=== PATIENT | male | born 1975 ===

== ENCOUNTER 2019-02-17 15:48 | Inpatient (IN) | payer BC ==
[2019-02-17] MEDS ORDERED: Lorazepam 2 MG/ML VIAL ONE (16:20)
[2019-02-17 16:37] LABS: #Basophils 0.1 thou/uL (0.0-0.2); #Eosinphils 0.2 thou/uL (0.0-0.7); #Lymphocytes 2.2 thou/uL (1.20-3.40); #Monocytes 0.7 thou/uL (0.11-0.59); %Basophils 0.6 % (0.0-1.0); %Eosinophils 1.6 % (0.0-10.0); %Lymphocytes 21.7 % (21.0-51.0); %Monocytes 6.7 % (0.0-10.0); %Neutrophils 69.5 % (42.0-75.0); Hemoglobin 15.4 g/dL (14.0-18.0); Mean Corpuscular Hemoglobin 30.4 pg (27.0-31.0); Mean Corpuscular Volume 86.8 fL (78.0-98.0); Mean Platelet Volume 8.2 fL (7.4-10.4); Platelet Count 249 thou/uL (130-400); RBC Distribution Width 11.8 % (11.5-14.5); Red Blood Cell (RBC) Count 5.08 mill/uL (4.70-6.10)
[2019-02-17 16:45] LABS: Bilirubin Negative (Negative); Blood, Urine Trace (Negative); Clarity CLEAR (Clear); Glucose, Urine (Dipstick) >=1000 mg/dL (Negative); Leukocyte Negative (Negative); Nitrite Negative (Negative); Protein, Urine (Dipstick) 100 mg/dL (Neg-Trace); Specific Gravity, Urine 1.043 (1.002-1.036); Urobilinogen 0.2 mg/dL (0.2-1.0)
[2019-02-17 16:48] LABS: Bacteria/HPF None Seen HPF (None Seen); Hyaline Casts/LPF 0-3 HYALINE CAST LPF (0-3 Hyaline); Pathc Cast-AUWi Flag 0.81 (0-2.49); Squamous Epithelial 0-3 HPF (0-3); WBC/HPF 0-3 HPF (0-3)
[2019-02-17 16:56] LABS: Amphetamine Not Detected (NotDetected); Barbiturates Screen Not Detected (NotDetected); Benzodiazepine Screen Not Detected (NotDetected); Cocaine Metabolite Screen Not Detected (NotDetected); Medtox Control Line Valid? VALID (VALID); Medtox Reader # READER 4; Methadone Not Detected (NotDetected); Methamphetamine Not Detected (NotDetected); Opiate Screen Not Detected (NotDetected); Oxycodone Screen Not Detected (NotDetected); Phencyclidine (PCP) Not Detected (NotDetected); THC/Cannabinoid Screen Not Detected (NotDetected); Tricyclic Screen Not Detected (NotDetected)
[2019-02-17 17:06] LABS: Acetaminophen Less than 6.0 mcg/mL (10.0-30.0); Alcohol Less than 10 mg/dL (Less than 10)
[2019-02-17 18:09] LABS: Salicylate Less than 8.0 mg/dL (15.0-30.0)
[2019-02-17 18:41] LABS: Chloride 101 mmol/L (98-107); Potassium 4.3 mmol/L (3.5-5.1); Sodium 132 mmol/L (136-145)
[2019-02-17 18:42] LABS: Anion Gap 20 mmol/L (10-20); BUN (Urea Nitrogen) 13 mg/dL (8.9-20.6); Calc. Creatinine Clearance 0 mL/min (70-130); Carbon Dioxide 16 mmol/L (22-29); Estimated GFR-MDRD Greater than 90; Glucose 295 mg/dL (70-105)
[2019-02-17 18:43] LABS: ALT (SGPT) 14 U/L (8-55); AST (SGOT) 20 U/L (5-34); Albumin 3.7 g/dL (3.5-5.0); Alkaline Phosphatase 68 U/L (40-150); Bilirubin, Total 0.2 mg/dL (0.2-1.2); Calcium 8.4 mg/dL (7.8-10.44); Globulin 2.5 g/dL (2.4-3.5); Lipase 43 U/L (8-78); Protein, Total 6.2 g/dL (6.0-8.3)
[2019-02-17] MEDS ORDERED: Ondansetron ODT 4 MG TAB PO PRN (20:10)
[2019-02-17] MEDS ORDERED: Ondansetron PF 4 MG/2 ML Vial IVP PRN (20:10)
[2019-02-17] MEDS ORDERED: Acetaminophen 325 MG TAB PO PRN (20:10)
[2019-02-17] MEDS ORDERED: Morphine 2 MG/ML SYRINGE SLOW IVP PRN (20:13)
[2019-02-17] MEDS ORDERED: Morphine 4 MG/ML VIAL SLOW IVP PRN (20:13)
[2019-02-17] MEDS ORDERED: Sodium Chloride 0.9% 1,000 ML IV SCH (20:15)
[2019-02-17] MEDS ORDERED: HYDROcodone/Acetaminophen 5/325 mg Tablet PO PRN (20:16)
[2019-02-17] MEDS ORDERED: Dextrose 50% Abboject 50 ML SYRINGE SLOW IVP PRN (20:17)
[2019-02-17] MEDS ORDERED: HumaLOG 300 UNITS/3 ML VIAL SC PRN ×2 (20:17)
[2019-02-17] MEDS ORDERED: Dextrose 5% in Water 1,000 ML IV PRN (20:17)
[2019-02-17] MEDS ORDERED: hydrALAZINE 20 MG/ML VIAL SLOW IVP PRN (20:18)
--- NOTE | 2019-02-17 20:56 | HP ---
PRIMARY CARE PHYSICIAN: Dr. Montoya. CHIEF COMPLAINT: Abdominal pain. HISTORY OF PRESENT ILLNESS: This is a 43-year-old male with history of diabetes mellitus type 2, hypertension, dyslipidemia, off all medicines for 3-4 months, daily alcohol use, who presents to the emergency room with a complaint of abdominal pain. The patient reports the onset of 3 days ago, located in the left upper quadrant with associated fatigue and weakness. States that he has primarily been in bed, able to drink fluids, but rates the pain in severity at its worst as 8/10. He describes it as an aching quality that radiates to his back. This afternoon, the pain is improved and rates it 1/10 or 2/10. He denies any precipitating factors or relieving factors and has not taken pain medicine for this. The patient was seen in the office of his primary care provider by another physician yesterday who prescribed Reglan and set up a CT scan, which was performed today at [facility]. He was called with results and told he has a new diagnosis of pancreatitis and go to an emergency room. The patient denies any prior history of this diagnosis. He does report a prior history of similar pain 3-4 months ago and was not seen for it. He attributed it to the medications that he was on for the above medical problems and discontinued all of them. He reports that the symptoms lasted 4 days and then resolved. The patient notes the weakness, fatigue, polyuria, polydipsia, and a fast heart rate at home. He denies any nausea, vomiting, fevers, or chills. In the in the emergency room, the patient received 2 L of IV fluid, 1 mg of Ativan, and hospitalist called for admission. ALLERGIES: TO MEDICINE ARE AMOXICILLIN WHICH CAUSES DIARRHEA. CURRENT MEDICATIONS: Reglan, he took 5 mg two tablets yesterday. PAST MEDICAL HISTORY: 1. Diabetes mellitus type 2. 2. Hypertension. 3. Dyslipidemia. 4. Obstructive sleep apnea status post surgery. No CPAP required. PAST SURGICAL HISTORY: 1. Tonsillectomy. 2. Uvula removal. 3. Adenoids. SOCIAL HISTORY: The patient consumes 6 beers per day, on the weekends, consume more and 4 days ago, had at least 20 beers. He is , denies any tobacco. His is his surrogate decision maker. FAMILY HISTORY: Significant for diabetes, stroke and coronary disease. REVIEW OF SYSTEMS: Positive for Weakness, fatigue, polyuria, polydipsia, and fast heart rate. The patient denies any shakiness or tremors and last alcohol use was 4 days ago. Negative for nausea, vomiting, fevers. All remaining review of systems were reviewed and negative. PHYSICAL EXAMINATION: VITAL SIGNS: His pulse is 119, blood pressure 152/90, respirations 20, temperature 98, saturations 99% on room air. GENERAL: Awake, alert, responsive, in no apparent distress. Able to speak in full sentences. HEENT: His pupils are equal and round. No scleral icterus. Oral mucosa is pink and moist. NECK: Supple and nontender. LYMPHATICS: No palpable cervical or supraclavicular lymphadenopathy. LUNGS: Clear to auscultation bilateral with good air movement. HEART: Normal S1, S2. Regular rate and rhythm. No audible murmurs. ABDOMEN: Soft with present bowel sounds, nontender, nondistended. EXTREMITIES: No pitting edema, clubbing or cyanosis. SKIN: No visible rashes. NEURO: No focal deficits. VASCULAR: 2+ dorsalis pedis pulses. PSYCH: The patient is euthymic. DIAGNOSTIC STUDIES: EKG, personally reviewed, sinus rhythm, tachycardia to 128. No ST changes. LABORATORY DATA: Labs reviewed. CBC; 10, 15.4, 44.1, 249. Chemistry; 132, which corrects to 136, 4.3, 101, 16, 13, 0.78, 295. Lipase is 43. Urinalysis; specific gravity 1.043, present protein, glucose, ketones, trace blood with 4 to 6 red blood cells. Urine drug screen negative. Alcohol negative. Acetaminophen and salicylates negative. IMPRESSION: 1. Pancreatitis based on history and CT with alcohol being the most likely precipitant of this. The patient does have a history of dyslipidemia that is currently untreated. 2. Tachycardia, likely secondary to uncontrolled diabetes and polyuria, as well as pancreatitis. 3. Metabolic acidosis, likely secondary to above. 4. Alcohol abuse. 5. Type 2 diabetes, uncontrolled. 6. Hypertension, uncontrolled. 7. Dyslipidemia, uncharacterized as to the extent. 8. Pseudohyponatremia - corrects to normal. PLAN: 1. Admission to the hospital. 2. Telemetry monitoring, bolus another 1 L of normal saline and run twice maintenance IV fluids. 3. Since pain is better, we will start on a clear liquid carbohydrate consistent diet for now and advance as tolerated. 4. Check a lipid panel, we will obtain an ultrasound of his gallbladder to evaluate for a gallbladder etiology given the improvement in symptoms. 5. Manage significantly elevated blood pressures with hydralazine. 6. Manage pain as well as any nausea or vomiting. 7. Insulin sliding scale with meals and at bedtime. 8. The patient's to bring in the medication list of what he used to be on to determine what medications will be appropriate either for the inpatient or after discharge. 9. Given the normal lipase today, no indication to repeat it. 10. Monitor for signs or symptoms of alcohol withdrawal. 11. Anticipated length of stay is at least 2 midnights for management of symptoms and further evaluation. 12. Deep venous thrombosis prophylaxis, pneumatic compression devices. 13. Gastrointestinal prophylaxis, not indicated. 14. Code status is full and surrogate decision maker is the patient's . 15. Reviewed the plan of care with the patient and his . No questions or further needs at the end of evaluation. 16. The patient is at high risk given age, comorbidities and current presentation. Job ID: [id number] [facility]
[2019-02-17] MEDS: Sodium Chloride 0.9% 1,000 ML IV SCH (21:04)
[2019-02-17 21:28] VITALS: BMI 34.9
[2019-02-17] MEDS ORDERED: Lorazepam 2 MG/ML VIAL SLOW IVP PRN (21:53)
[2019-02-18] MEDS: Sodium Chloride 0.9% 1,000 ML IV SCH ×5 (02:21→17:37)
[2019-02-18 05:50] LABS: #Eosinphils 0.3 thou/uL (0.0-0.7); #Lymphocytes 1.6 thou/uL (1.20-3.40); #Monocytes 0.4 thou/uL (0.11-0.59); #Neutrophils 5.1 thou/uL (1.40-6.50); %Basophils 0.1 % (0.0-1.0); %Eosinophils 3.6 % (0.0-10.0); %Lymphocytes 21.5 % (21.0-51.0); %Monocytes 5.6 % (0.0-10.0); %Neutrophils 69.2 % (42.0-75.0); Mean Corpuscular HGB CONC 33.7 g/dL (32.0-36.0); Mean Corpuscular Hemoglobin 29.7 pg (27.0-31.0); Mean Corpuscular Volume 87.9 fL (78.0-98.0); Mean Platelet Volume 7.8 fL (7.4-10.4); Platelet Count 204 thou/uL (130-400); RBC Distribution Width 11.7 % (11.5-14.5); Red Blood Cell (RBC) Count 4.39 mill/uL (4.70-6.10); White Blood Cell (WBC) Count 7.3 thou/uL (4.8-10.8)
[2019-02-18 06:10] LABS: Anion Gap 13 mmol/L (10-20); BUN (Urea Nitrogen) 7 mg/dL (8.9-20.6); Calc. Creatinine Clearance 219 mL/min (70-130); Calcium 8.3 mg/dL (7.8-10.44); Carbon Dioxide 18 mmol/L (22-29); Cardiac Risk 10.9 (Less than 4.5); Chloride 107 mmol/L (98-107); Cholesterol 316 mg/dl (< 200 Desired); Estimated GFR-MDRD Greater than 90; Glucose 181 mg/dL (70-105); HDL Cholesterol 29 mg/dL (>60 Neg Risk); Potassium 3.6 mmol/L (3.5-5.1); Sodium 134 mmol/L (136-145); Triglycerides 776 mg/dL (Less than 150)
--- NOTE | 2019-02-18 07:00 | ULT ---
GALLBLADDER ULTRASOUND: INDICATIONS: Pain. Pancreatitis. FINDINGS: There is increased echogenicity of the liver. There is no evidence of cholelithiasis or acute cholec ystitis. The common duct is normal in caliber. No evidence of ascites. The pancreas is incompletel y visualized on the basis of this exam, as portions are obscured by bowel content. As necessary, butcher creatitis may be further assessed with a dedicated CT exam with contrast. IMPRESSION: 1. Findings favor hepatic steatosis with relative sparing of the gallbladder fossa. 2. No acute gallbladder pathology. POS: MANFRED
--- NOTE | 2019-02-18 11:59 | PDOC.PN ---
- Subjective Encounter Start Date: 02/18/19 (f/u pancreatitis) Encounter Start Time: 11:57 Subjective: Pt denies any pain/n/v. Has voided twice today. Denies any new -: concerns. Tolerating liquids without difficulty. - Objective Resuscitation Status - Order Detail: 02/17/19 20:10 Resuscitation Status Routine Resuscitation Status: FULL: Full Resuscitation Vital Signs & Weight: Vital Signs (12 hours) Temp Pulse Resp BP BP Pulse Ox 02/18/19 07:45 165/84 H 95 02/18/19 07:42 97.8 F 105 H 20 167/86 H 95 02/18/19 04:16 98.1 F 104 H 18 168/90 H 95 02/18/19 04:10 168/90 H 02/18/19 00:05 159/87 H Weight Weight 216 lb 14.4 oz I&O: 02/17/19 02/18/19 02/19/19 06:59 06:59 06:59 Intake Total 3205 Output Total 750 Balance 2455 Result Diagrams: 02/18/19 05:38 02/18/19 05:38 Additional Labs: Accuchecks 02/18/19 02/18/19 10:37 05:20 POC Glucose 205 H 156 H EKG Reviewed by me: Yes (tele - sinus 110-120's) Phys Exam - Physical Examination Constitutional: NAD Respiratory: no wheezing, no rales, no rhonchi, clear to auscultation bilateral Cardiovascular: RRR, no significant murmur Gastrointestinal: soft, non-tender, no distention, positive bowel sounds Musculoskeletal: no edema Neurological: non-focal, moves all 4 limbs Psychiatric: normal affect Dx/Plan (1) Pancreatitis Code(s): K85.90 - ACUTE PANCREATITIS WITHOUT NECROSIS OR INFECTION, UNSP Status: Acute Qualifiers: Chronicity: acute Pancreatitis type: unspecified pancreatitis type (2) Diabetes mellitus Code(s): E11.9 - TYPE 2 DIABETES MELLITUS WITHOUT COMPLICATIONS Status: Chronic Qualifiers: Diabetes mellitus type: type 2 Diabetes mellitus jail insulin use: without emt intermediate use (3) Hypertension Code(s): I10 - ESSENTIAL (PRIMARY) HYPERTENSION Status: Chronic Qualifiers: Hypertension type: essential hypertension Qualified Code(s): I10 - Essential (primary) hypertension (4) Dyslipidemia Code(s): E78.5 - HYPERLIPIDEMIA, UNSPECIFIED Status: Acute (5) Alcohol abuse Code(s): F10.10 - ALCOHOL ABUSE, UNCOMPLICATED Status: Chronic - Plan * Pancreatitis - pain free * to bring home meds in - will review and determine which ones to restart * DM 2 =- uncontrolled. * HTN - uncontrolled * HLP - elevated triglycerides - doubt this level would cause pancreatitis * Supervisor Harvesting consult * monitor for alcohol withdrawal * tachycardia - check TSH * Hepatic steatosis - needs f/u with PCP Dr. Schreiber * * dvt prophy - ambulatory * gi prophy - not indicated * code status full * * reviewed plan of care with patient,no questions or further needs at end of eval
[2019-02-18] MEDS ORDERED: Amlodipine 5 MG TAB PO SCH (16:30)
--- NOTE | 2019-02-18 16:30 | PDOC.EVN ---
Event Note - Event Note Event Note: reviewed home meds: - statin - hold for now due to acute pancreatitis. Start gemfibrozil instead to address the elevated triglycerides - ARB - hold for now, and start amlodipine due to no potential effect on the kidneys. - metformin - start tomorrow at lower than normal dose. Will lower IVF rate and monitor UOP and advance diet to carb consistent/heart healthy. recheck labs in AM and if doing well, anticipate d/c to home.
[2019-02-18] MEDS: Gemfibrozil 600 MG TAB PO SCH (17:36)
[2019-02-19] MEDS: Sodium Chloride 0.9% 1,000 ML IV SCH (03:56)
[2019-02-19] MEDS ORDERED: metFORMIN 500 MG TAB PO SCH (08:00)
[2019-02-19 08:16] LABS: Anion Gap 14 mmol/L (10-20); BUN (Urea Nitrogen) 7 mg/dL (8.9-20.6); Calc. Creatinine Clearance 198 mL/min (70-130); Calcium 9.5 mg/dL (7.8-10.44); Carbon Dioxide 22 mmol/L (22-29); Chloride 101 mmol/L (98-107); Estimated GFR-MDRD Greater than 90; Glucose 183 mg/dL (70-105); Potassium 3.6 mmol/L (3.5-5.1); Sodium 133 mmol/L (136-145)
[2019-02-19 08:22] VITALS: BP 147/63; TEMP 98.2
[2019-02-19] MEDS ORDERED: Amlodipine 5 MG TAB PO SCH (09:00)
[2019-02-19] MEDS: Gemfibrozil 600 MG TAB PO SCH (09:26)
--- NOTE | 2019-02-19 15:09 | EKG ---
Test Reason : Blood Pressure : / mmHG Vent. Rate : 128 BPM Atrial Rate : 128 BPM P-R Int : 132 ms QRS Dur : 080 ms QT Int : 304 ms P-R-T Axes : 043 -05 -04 degrees QTc Int : 443 ms Sinus tachycardia Possible Left atrial enlargement Left ventricular hypertrophy Abnormal ECG Confirmed by LUCIAN LÓPEZ ([id number]), editorial project manager LEX GUSTAFSON ([id number]) on 02/19/2019 3:09:36 PM Referred By: Confirmed By:LUCIAN LÓPEZ
--- NOTE | 2019-02-20 11:55 | DIS ---
DATE OF ADMISSION: 02/17/2019 DATE OF DISCHARGE: 02/19/2019 MEDICATIONS: Reconciled at discharge. HOME MEDICATIONS: The patient had not been on any home medications for at least a few months and then was on them only for a few days. His home medications previously prescribed are as follows; 1. Atorvastatin. This is not restarted due to this admission for pancreatitis. 2. Losartan. This medication was on hold. Here, the patient was instead started on amlodipine, anticipate this can be started again in the outpatient setting. 3. Glipizide. This will be restarted at a lower dose. 4. Metformin. This will be restarted at a lower dose. NEW MEDICATIONS: 1. Amlodipine 5 mg daily. 2. Gemfibrozil 600 mg b.i.d. with food. 3. Glipizide 5 mg daily. 4. Metformin 500 mg daily. FINAL DIAGNOSES: 1. Acute pancreatitis. 2. Hypertension, uncontrolled. 3. Type 2 diabetes, uncontrolled. 4. Dyslipidemia including hypertriglyceridemia, uncontrolled. 5. Tachycardia, likely secondary to above medical problems. 6. Hepatic steatosis. SECONDARY DIAGNOSES: Alcohol abuse. HISTORY OF PRESENT ILLNESS: Mr. Avni Hills is a 43-year-old male with the above medical problems, who had been off all of his medicines for 3 or 4 months, presented to his primary care provider's office with a complaint of abdominal pain. He was sent for a CT scan the following day, called with results of pancreatitis and encouraged to present to the emergency room. The patient at onset of pain reported it was 8/10 in severity and had improved by the time he got to the emergency room to 1 or 2/10. He was admitted for the diagnosis of pancreatitis in the context of uncontrolled hypertension, diabetes. HOSPITAL COURSE: The patient has been managed on IV fluid hydration and has tolerated this well. 1. Pancreatitis. The patient's lipase level was normal on admission. In discussion with him, he had a significant increase in alcohol use the day prior to the onset of symptoms. This is considered the source of pancreatitis. He does have elevated triglycerides in the 700 range and was started on gemfibrozil. He had a CT scan only notable for hepatic steatosis, no gallstones and his LFTs were normal. 2. Diabetes. The patient's blood sugars here have been in the 140s to the 180s systolic. He was started on amlodipine yesterday and his blood pressure this morning is 147/63. He will be discharged on this medication. I anticipate that his losartan can be resumed in the outpatient setting. This was not initiated here, instead amlodipine so that the patient can be seen by his primary care provider with followup labs and to determine when to resume this medication. 3. Diabetes. The patient was managed with sliding scale insulin here and his blood sugars have been in the 180s to low 200s. I resumed his metformin at a low dose today, which I anticipate can be increased in the outpatient setting. In addition, glipizide will be resumed at a lower dose tomorrow. 4. Dyslipidemia. His atorvastatin was not initiated due to the rare risk of pancreatitis associated with it. He had not been on this medication, it is not the source of pancreatitis. I anticipate that he can be started on the outpatient setting in a few weeks to a month or so. In the meantime, he is started on gemfibrozil for the high triglycerides. 5. We discussed dietary consideration for management of all 3 medical conditions of diabetes, hypertension, and dyslipidemia. We discussed primarily filling his plate with vegetables, followed by meat and a very small proportion of his intake to be carbohydrates. In addition, we discussed complete cessation of alcohol. The patient desires to continue this and will follow up with his doctor in the outpatient setting. 6. Tachycardia. The patient has remained with a heart rate of about 100. He had no arrhythmias during this admission and was monitored on telemetry. He may benefit from a Cardiology workup, and will benefit from optimization of the high blood pressure, diabetes, and dyslipidemia. Beta-jose was not initiated during this admission, and the patient only received telemetry. The patient overall feeling well, ambulating well and does meet criteria for discharge to home with close followup as noted above. PHYSICAL EXAMINATION: VITAL SIGNS: On day of discharge, his pulse was 103, blood pressure 147/63. GENERAL: Awake, alert, and responsive, in no apparent distress. Able to speak in full sentences. LUNGS: Clear to auscultation bilateral. HEART: Normal S1 and S2. Regular rate and rhythm. No audible murmurs. ABDOMEN: Soft with present bowel sounds. Nontender. Nondistended. EXTREMITIES: No edema. [place] FINDINGS AND TEST RESULTS: Renal panel today 133, 3.6, 101, 22, 7, 0.66, 183 with a calcium of 9.5. Triglycerides 776, cholesterol 316, HDL 29. T bilirubin 0.2, AST 20, ALT 14, alkaline phosphatase 68, total protein 6.2, and albumin 3.7. Lipase was 43. CBC; 7.3, 13, 38.6, 204 with a hemoglobin of 15.4 on admission. Urinalysis present glucose, ketones. Specific gravity 1.043 and present protein. Urine drug screen is negative. Alcohol negative. Abdominal ultrasound performed on February 17. Findings favor hepatic steatosis with relative sparing of the gallbladder fossa. No acute gallbladder pathology. DIET: Heart healthy, carbohydrate consistent. ACTIVITY: As tolerated, recommend the patient not return to work until February 28 to allow time to both recover, see how he does on medication and follow up closely with his primary care provider. A note is provided for this. DISCHARGE DISPOSITION: Home CODE STATUS: Full Followup is with Dr. Montoya as scheduled for February 22. Reviewed with the patient and his this hospitalization, medication changes and reasoning behind, the need for followup and seek care precautions. He demonstrates understanding. Total time coordinating discharge is 40 minutes. Job ID: [id number] [facility]
== END 2019-02-19 13:04 | disposition home or self-care (01) | DRG 439 ==
LOC: ERS 15:48 → UNDOADMIN 19:49 → 2NO 19:49 → UNDODISIN 20:23 → 2NO 20:41
PROVIDERS: ADMIT Family Medicine; ATTEND Family Medicine
DX: K85.20 Alcohol induced acute pancreatitis without necrosis or infection (principal); E87.2 Acidosis; E11.9 Type 2 diabetes mellitus without complications; I10 Essential (primary) hypertension; E78.5 Hyperlipidemia, unspecified; G47.33 Obstructive sleep apnea (adult) (pediatric); E78.1 Pure hyperglyceridemia; F10.10 Alcohol abuse, uncomplicated; R00.0 Tachycardia, unspecified; K76.0 Fatty (change of) liver, not elsewhere classified; Z88.8 Allergy status to other drugs, medicaments and biological substances; Z88.1 Allergy status to other antibiotic agents; Z88.0 Allergy status to penicillin
CPT/HCPCS: 36415; 36416; 76705; 80048; 80053; 80061; 80306; 80307; 81003; 81015; 83690; 85025; 93005; 96361; 96374; J0360; J2060

== ENCOUNTER 2023-08-03 22:44 | Emergency (ER) | payer BC, SELFPAY ==
[2023-08-04] MEDS ORDERED: predniSONE 20 MG TAB ONE (00:49)
[2023-08-04] MEDS ORDERED: Famotidine 20 MG TAB ONE (00:49)
== END 2023-08-04 01:01 | disposition home or self-care (01) ==
LOC: ERS 22:44
DX: S80.862A Insect bite (nonvenomous), left lower leg, initial encounter (principal); S80.861A Insect bite (nonvenomous), right lower leg, initial encounter; I10 Essential (primary) hypertension; E78.5 Hyperlipidemia, unspecified; W57.XXXA Bitten or stung by nonvenomous insect and other nonvenomous arthropods, initial encounter; Z79.84 Long term (current) use of oral hypoglycemic drugs; Z79.899 Other long term (current) drug therapy
CPT/HCPCS: 99282; J7512